=== PATIENT | female | born 1990 | race Caucasian/White ===

== ENCOUNTER 2021-11-06 12:30 | Outpatient (CLI) | payer OTHER, SELFPAY ==
--- NOTE | ~2021-11-06 | MR_ITS ---
EXAMINATION: MR knee RT wo con DATE: 11/06/2021 13:36 INDICATION: Right knee pain with locking and swelling. TECHNIQUE: Magnetic resonance imaging (MRI) of the right knee was performed without intravenous contr ast. Sequences included coronal PD-weighted FSE, coronal PD-weighted FS FSE, sagittal T2-weighted FS E, sagittal PD-weighted FS FSE and axial PD weighted fat saturated FSE. COMPARISON: None. FINDINGS: Medial compartment: Linear fluid signal intensity longitudinal horizontal tear plane at the anterior horn of the medial m eniscus. The body and posterior horn of the medial meniscus are diminutive suggesting prior partial m eniscectomies. Additional irregular increased signal of less than fluid intensity within the diminuti ve body and posterior horn equivocal for residual versus recurrent versus chronic repaired tears. Dif fuse partial thickness cartilage loss throughout the medial compartment most severe along the medial side of the anterior weightbearing medial femoral condyle where it appears to encroach full-thickness with mild underlying cortical irregularity. Mild subarticular edema along the posterior rim of the m edial tibial plateau. Lateral compartment: Lateral meniscus is normal. Articular cartilage is normal. Patellofemoral compartment: Partial-thickness cartilage loss with deep chondral fissuring without degenerative subchondral change s at the patellar apical ridge and medial facet and at the inferior aspect of the trochlear groove. C hondral swelling at the cephalad aspect of the trochlear groove. Partial-thickness chondral ulceratio n involving up to 50% the cartilage thickness at the medial trochlea. Ligaments and tendons: Anterior cruciate ligament reconstruction with intact. There is small amount of fluid surrounding the intact graft within the proximal aspect of the tibial tunnel. The posterior cruciate ligament is nor mal. The medial collateral ligament and fibular collateral ligament complex are normal. Subtle defect s at the patellar insertions at the inferior patella and anterior tibial tuberosity likely representi ng harvest sites for a prior patellar tendon autograft. The distal quadriceps tendon is normal. The s emitendinosus tendon is not identified and may also been utilized as an autograft. The visualized med ial and lateral hamstring tendons as well as the iliotibial band are otherwise normal. Fluid: Physiologic amount of fluid in the joint space. No loose osteochondral bodies identified. Osseous/other: Bone alignment is normal. No fracture or pathologic marrow replacing process. IMPRESSION: 1. Intact anterior cruciate ligament reconstruction with suggestion of prior patellar tendon and semi tendinosus autograft harvest. Correlate with surgical history. 2. Longitudinal horizontal tear at the anterior horn of the medial meniscus with small irregular meni scal body and posterior horn consistent with prior partial meniscectomy with residual/recurrent or po tentially previously repaired tears at the small amount of remaining meniscal tissue at the body and posterior horn. 3. Mild medial and patellofemoral osteoarthritis with moderate to high-grade chondromalacia in the me dial compartment and moderate grade chondromalacia in the patellofemoral compartment. Reviewed, dictated and finalized at location B. OR ENGINEER IMPRESSION: 1. Intact anterior cruciate ligament reconstruction with suggestion of prior pa tellar tendon and semitendinosus autograft harvest. Correlate with surgical his tory. 2. Longitudinal horizontal tear at the anterior horn of the medial meniscus wit h small irregular meniscal body and posterior horn consistent with prior partia l meniscectomy with residual/recurrent or potentially previously repaired tears at
== END 2021-11-06 12:31 | disposition home or self-care (01) ==
PROVIDERS: PCP Family Medicine; Visit Provider Family Medicine
DX: S83.241A Other tear of medial meniscus, current injury, right knee, initial encounter (principal); X58.XXXA Exposure to other specified factors, initial encounter; M17.11 Unilateral primary osteoarthritis, right knee
CPT/HCPCS: 73721